=== PATIENT | female | born 1965 | race Caucasian/White ===

== ENCOUNTER 2017-03-07 10:42 | Emergency (ER) | payer OTHER ==
[~2017-03-07] VITALS: Ht 167.6 cm; Wt 76.6 kg
[~2017-03-07 10:42] MED LIST: ENDOCET 5-3251 EACH PO; FIBER CHOICE1 TABLET PO; Flonase BOTH NARES; MOTRIN800 MG PO; THERAGRAN1 TABLET PO; WELLBUTRIN XL150 MG PO
[2017-03-07 12:24] LABS: MCH 28.5 PG (29.0-34.0); MCHC 33.2 G/DL (30.0-36.0); MCV 85.9 FL (83-99); MEAN PLAT.VOLUME 9.7 uM^3 (9.5-12.4); PLATELET COUNT 297 K/uL (156-360); RBC DIS.WIDTH-CV 13.2 % (11.8-14.6); RBC DIS.WIDTH-SD 41.5 % (39-53); RED BLOOD COUNT 5.12 M/uL (3.80-5.20); WHITE BLOOD COUNT 7.3 K/uL (4.1-10.2)
[2017-03-07 12:34] LABS: CHLORIDE 105 mEq/L (99-109); POTASSIUM 4.2 mEq/L (3.7-5.4); SODIUM 140 mEq/L (136-147)
[2017-03-07 12:37] LABS: GLUCOSE 110 mg/dL (70-99)
[2017-03-07 12:38] LABS: ANION GAP 12 MEQ/L (2-14)
[2017-03-07 12:39] LABS: TOTAL BILIRUBIN 0.4 mg/dL (0.0-1.0)
[2017-03-07 12:40] LABS: ALKALINE PHOSPHATASE 83 IU/L (3-129)
[2017-03-07 12:41] LABS: UREA NITROGEN (BUN) 12 mg/dL (9-23)
[2017-03-07 12:52] LABS: QUANTITATIVE HCG < 4.0 MIU/ML
[2017-03-07 12:56] LABS: GFR ESTIMATE (CALCULATED) > 59 mL/min/
[2017-03-07 13:19] LABS: ADD MIUA? YES; BILIRUBIN NEGATIVE; BLOOD MODERATE; COLOR YELLOW ((YELLOW)); GLUCOSE (STRIP) NEGATIVE; KETONES 20; LEUKOCYTES NEGATIVE; NITRITE NEGATIVE; PROTEIN (STRIP) NEGATIVE; SPECIFIC GRAVITY 1.014 (1.000-1.030); UROBILINOGEN 0.2 MG/DL (0.2-1.0)
[2017-03-07 13:27] LABS: BACTERIA NONE SEEN /HPF; EPITHELIAL CELLS RARE /HPF; MUCUS TRACE /LPF; UCUL ADDED? NO; WHITE BLOOD CELLS 0-5 /HPF (0-5)
[2017-03-07] MEDS ORDERED: ULTRAM50 MG PO (15:48)
[2017-03-07] MEDS ORDERED: ZOFRAN4 MG PO (15:48)
[2017-03-07 16:26] VITALS: BP 115/65
== END 2017-03-07 16:27 | disposition home or self-care (01) ==
LOC: EME 10:42
DX: R10.13 Epigastric pain (principal); R19.7 Diarrhea, unspecified; K21.9 Gastro-esophageal reflux disease without esophagitis
CPT/HCPCS: 74177; 80053; 81003; 84702; 85027; 99281; 99284; J2405; J3010; J7030